=== PATIENT | male | born 1955 | race African-American/Black ===

== ENCOUNTER 2024-06-22 15:20 | Inpatient (IN) | payer OTHER ==
[2024-06-22] MEDS: NALOXONE HCL 0.4 MG/ML VIAL IM ONE (16:00)
[2024-06-22 16:02] LABS: HEMATOCRIT 29.7 % (40.1-51.0); HEMOGLOBIN 10.3 g/dL (13.7-17.5); MCHC 34.7 g/dl (32.3-36.5); MEAN CELL VOLUME 84.9 fl (79.0-92.2); PLATELET COUNT 97 x10^3/uL (163-337); RDW 12.8 % (12.2-16.4)
[2024-06-22] MEDS: PIPERACILLIN/TAZOB 4.5 GM 4.5 GM in DEXTROSE 5%-WATER 100 ML IVPB ONE (16:05)
[2024-06-22 16:09] LABS: INR 1.37 (0.83-1.09); PROTHROMBIN TIME (PATIENT) 14.9 SEC (9.7-13.0)
[2024-06-22] MEDS ORDERED: PIPERACILLIN/TAZOB 4.5 GM 4.5 GM/100 ML BAG IVPB ONE (16:09)
[2024-06-22 16:12] LABS: ACTIVATED PTT 32.4 SECONDS (25.2-36.5)
[2024-06-22 16:14] LABS: VENOUS BASE EXCESS -10.2 mmol/L (-2-2); VENOUS O2 SATURATION 78.9 % (70-80); VENOUS PCO2 27.8 mmHg (38-52); VENOUS PH 7.337 (7.310-7.410)
[2024-06-22 16:33] LABS: CHLORIDE 102 mmol/L (98-107); POTASSIUM 5.9 mmol/L (3.5-5.1); SODIUM 141 mmol/L (136-145)
[2024-06-22 16:35] LABS: CALCIUM 9.5 mg/dL (8.5-10.1)
[2024-06-22 16:36] LABS: ANION GAP 22 mmol/L (4-13); CO2 16 mmol/L (21-32); GLUCOSE,RANDOM 116 mg/dL (74-106)
[2024-06-22 16:39] LABS: SGPT/ALT 814 U/L (13-61)
[2024-06-22 16:40] LABS: BILIRUBIN,TOTAL 2.2 mg/dL (0.2-1)
[2024-06-22 16:42] LABS: ALK PHOS 140 U/L (45-117); BLOOD UREA NITROGEN 200.8 mg/dL (7-18); CREATININE 11.6 mg/dL (0.55-1.3); LACTIC ACID 3.9 mmol/L (0.4-2.0)
[2024-06-22] MEDS: SODIUM CHLORIDE 1,000 ML IV STA ×2 (16:47→16:48)
[2024-06-22] MEDS ORDERED: NOREPINEPHRINE 0.9 % NACL 8 MG/250 ML BAG IVPB ONE (17:00)
[2024-06-22] MEDS: NOREPINEPHRINE 0.9 % NACL 8 MG/250 ML BAG IVPB SCH (17:00)
[2024-06-22] MEDS ORDERED: ACETAMINOPHEN INJECTION 100 ML ONE (17:00)
[2024-06-22 17:12] LABS: SGOT/AST 1255 U/L (15-37)
[2024-06-22] MEDS: ACETAMINOPHEN 1000 MG/100 ML BAG IVPB ONE (17:16)
[2024-06-22] MEDS ORDERED: SODIUM CHLORIDE 250 ML IV PRN (17:59)
[2024-06-22] MEDS: MIDAZOLAM HCL 2 MG/2 ML SINGLE DOSE VIAL IVPUSH ONE ×2 (18:05→18:57)
[2024-06-22] MEDS ORDERED: MIDAZOLAM HCL 2 MG/2 ML SINGLE DOSE VIAL ONE ×2 (18:14→18:44)
[2024-06-22 23:12] LABS: HEPATITIS B SURF AG NON-MATERN NON-REACTIVE (NONREACTIVE)
[2024-06-22] MEDS: PHENTOLAMINE MESYLATE 5 MG/2 ML VIAL IVPUSH ONE (23:15)
[2024-06-22] MEDS: MUPIROCIN 2% TOPICAL OINTMENT FOR DECOLONIZATION NS SCH (23:16)
[2024-06-22] MEDS: CHLORHEXIDINE GLUCONATE 4% CLEANSER FOR DECOLONIZATION TP SCH (23:16)
[2024-06-22] MEDS: HEPARIN NA (PORCINE) 5,000 UNITS/ML 1ML VIAL SQ SCH (23:40)
[2024-06-22 23:41] LABS: HCV DIAGNOSTIC IN-HOUSE W/RFLX NON-REACTIVE (NONREACTIVE)
[2024-06-22 23:41] LABS: HEMATOCRIT 23.9 % (40.1-51.0); HEMOGLOBIN 8.8 g/dL (13.7-17.5); MCHC 36.8 g/dl (32.3-36.5); MEAN CELL VOLUME 81.8 fl (79.0-92.2); PLATELET COUNT 67 x10^3/uL (163-337); RDW 12.4 % (12.2-16.4)
[2024-06-22 23:44] LABS: EPI CELLS >36 /uL (0-25.1); HYALINE CASTS 18 /uL (0-3.1); PH,URINE 5.5 (5.0-8.0); URINE APPEARANCE TURBID; URINE BACTERIA >9,000 /uL (0-1359); URINE BILIRUBIN NEGATIVE (NEGATIVE); URINE COLOR YELLOW; URINE GLUCOSE (UA) NEGATIVE (NEGATIVE); URINE KETONE NEGATIVE (NEGATIVE); URINE LEUK ESTERASE 3+ (NEGATIVE); URINE NITRITE NEGATIVE (NEGATIVE); URINE PROTEIN 3+ (NEGATIVE); URINE WBC 19720 /uL (0-25.8)
[2024-06-22] MEDS: VANCOMYCIN/WATER FOR INJ (PEG) 1,000 MG/200 ML BAG IVPB ONE (23:45)
[2024-06-22 23:59] LABS: CHLORIDE 110 mmol/L (98-107); POTASSIUM 3.9 mmol/L (3.5-5.1); SODIUM 146 mmol/L (136-145)
[2024-06-23 00:01] LABS: ALBUMIN 1.8 g/dl (3.4-5.0); ANION GAP 15 mmol/L (4-13); CO2 20 mmol/L (21-32); MAGNESIUM 2.2 mg/dL (1.8-2.4)
[2024-06-23 00:02] LABS: GLUCOSE,RANDOM 125 mg/dL (74-106)
[2024-06-23 00:04] LABS: CREATININE 6.5 mg/dL (0.55-1.3); PHOSPHOROUS 2.6 mg/dL (2.5-4.9); SGPT/ALT 807 U/L (13-61)
[2024-06-23 00:06] LABS: BILIRUBIN,TOTAL 2.9 mg/dL (0.2-1); TOT PROT 5.3 g/dl (6.4-8.2)
[2024-06-23 00:25] LABS: URINE RBC 568.6 /uL (0-23.9); YEAST NOT SEEN (NEGATIVE)
[2024-06-23 00:50] LABS: ARTERIAL BLD GAS O2 SATURATION 61.5 % (95-98); ARTERIAL BLOOD GAS BASE EXCESS -6.1 mmol/L (-2-2); ARTERIAL BLOOD GAS pH 7.373 (7.350-7.450)
[2024-06-23 00:52] LABS: ALLENS TEST POSITIVE
[2024-06-23 01:00] LABS: ARTERIAL BLOOD GAS PO2 32.4 mmHg (80-100)
[2024-06-23 01:07] LABS: ALK PHOS 176 U/L (45-117); BLOOD UREA NITROGEN 141.1 mg/dL (7-18); CALCIUM 7.9 mg/dL (8.5-10.1); LACTIC ACID 5.1 mmol/L (0.4-2.0); SGOT/AST 1293 U/L (15-37)
[2024-06-23] MEDS: LACTATED RINGERS SOLUTION 1000 ML INFUS.BAG IV ONE (02:07)
[2024-06-23] MEDS: SODIUM CHLORIDE 1,000 ML IV SCH (02:15)
[2024-06-23] MEDS: SODIUM CHLORIDE 1,000 ML IV STA (02:15)
[2024-06-23] MEDS ORDERED: PIPERACILLIN/TAZOB 2.25 GM 2.25 GM in DEXTROSE 5%-WATER - 50 ML IVPB SCH (03:00)
[2024-06-23] MEDS: LACTATED RINGERS SOLUTION 1,000 ML/1,000 ML INFUS.BAG IV SCH (03:04)
[2024-06-23] MEDS: PIPERACILLIN/TAZOB 2.25 GM 2.25 GM in DEXTROSE 5%-WATER - 50 ML IVPB SCH (03:04)
[2024-06-23 06:58] LABS: HEMATOCRIT 20.5 % (40.1-51.0); HEMOGLOBIN 7.1 g/dL (13.7-17.5); MCHC 34.6 g/dl (32.3-36.5)
[2024-06-23 07:00] LABS: MEAN CELL VOLUME 83.7 fl (79.0-92.2); MEAN PLT VOLUME 13.2 fl (9.4-12.4); PLATELET COUNT 66 x10^3/uL (163-337); RDW 12.5 % (12.2-16.4)
[2024-06-23 07:08] LABS: ACTIVATED PTT 29.1 SECONDS (25.2-36.5)
[2024-06-23 07:17] LABS: CHLORIDE 116 mmol/L (98-107); POTASSIUM 4.8 mmol/L (3.5-5.1); SODIUM 146 mmol/L (136-145)
[2024-06-23 07:20] LABS: ALBUMIN 1.6 g/dl (3.4-5.0); ANION GAP 11 mmol/L (4-13); CALCIUM 7.6 mg/dL (8.5-10.1); CO2 19 mmol/L (21-32); GLUCOSE,RANDOM 112 mg/dL (74-106); MAGNESIUM 1.9 mg/dL (1.8-2.4)
[2024-06-23 07:23] LABS: PHOSPHOROUS 4.6 mg/dL (2.5-4.9); SGPT/ALT 702 U/L (13-61)
[2024-06-23 07:25] LABS: TOT PROT 4.5 g/dl (6.4-8.2)
[2024-06-23 07:26] LABS: ALK PHOS 151 U/L (45-117); BLOOD UREA NITROGEN 159.9 mg/dL (7-18); CREATININE 7.4 mg/dL (0.55-1.3)
[2024-06-23 07:34] LABS: LACTIC ACID 2.4 mmol/L (0.4-2.0)
[2024-06-23 07:37] LABS: SGOT/AST 1154 U/L (15-37)
[2024-06-23 07:53] LABS: INR 1.51 (0.83-1.09); PROTHROMBIN TIME (PATIENT) 16.5 SEC (9.7-13.0)
[2024-06-23] MEDS ORDERED: DEXTROSE 5%-0.45% SALINE 1,000 ML IV SCH (09:45)
[2024-06-23] MEDS: PANTOPRAZOLE SODIUM 40 MG VIAL IVPUSH SCH (10:05)
[2024-06-23] MEDS: DEXTROSE 5%-0.45% SALINE 1,000 ML IV SCH (10:06)
[2024-06-23] MEDS ORDERED: SODIUM CHLORIDE 250 ML IV PRN (12:58)
[2024-06-23 20:13] LABS: HEMOGLOBIN 6.6 g/dL (13.7-17.5); MEAN CELL VOLUME 81.7 fl (79.0-92.2)
[2024-06-23 20:14] LABS: HEMATOCRIT 18.3 % (40.1-51.0); MCHC 36.1 g/dl (32.3-36.5); PLATELET COUNT 53 x10^3/uL (163-337); RDW 13.1 % (12.2-16.4)
[2024-06-23 20:43] LABS: POTASSIUM 4.4 mmol/L (3.5-5.1)
[2024-06-23 20:44] LABS: CALCIUM 7.7 mg/dL (8.5-10.1)
[2024-06-23 20:46] LABS: ALBUMIN 1.4 g/dl (3.4-5.0); MAGNESIUM 1.8 mg/dL (1.8-2.4)
[2024-06-23 20:48] LABS: BLOOD UREA NITROGEN 93.4 mg/dL (7-18); CREATININE 4.4 mg/dL (0.55-1.3); PHOSPHOROUS 3.9 mg/dL (2.5-4.9)
[2024-06-23 20:50] LABS: BILIRUBIN,TOTAL 4.2 mg/dL (0.2-1); TOT PROT 4.4 g/dl (6.4-8.2)
[2024-06-23] MEDS: PIPERACILLIN/TAZOB 2.25 GM 2.25 GM/50 ML BAG IVPB SCH (21:44)
[2024-06-24] MEDS: ACETAMINOPHEN 325 MG TABLET (FP) PO ONE (05:53)
[2024-06-24 07:39] LABS: HEMATOCRIT 23.9 % (40.1-51.0); HEMOGLOBIN 8.3 g/dL (13.7-17.5); MCHC 34.7 g/dl (32.3-36.5); MEAN CELL VOLUME 82.7 fl (79.0-92.2); MEAN PLT VOLUME 13.7 fl (9.4-12.4); PLATELET COUNT 60 x10^3/uL (163-337); RDW 13.3 % (12.2-16.4)
[2024-06-24 07:55] LABS: POTASSIUM 4.1 mmol/L (3.5-5.1)
[2024-06-24 08:02] LABS: ALBUMIN 1.7 g/dl (3.4-5.0); MAGNESIUM 2.2 mg/dL (1.8-2.4)
[2024-06-24 08:04] LABS: BLOOD UREA NITROGEN 101.3 mg/dL (7-18); CREATININE 4.7 mg/dL (0.55-1.3)
[2024-06-24 08:06] LABS: PHOSPHOROUS 5.8 mg/dL (2.5-4.9); TOT PROT 5.1 g/dl (6.4-8.2)
[2024-06-24 08:18] LABS: BILIRUBIN,TOTAL 7.1 mg/dL (0.2-1)
[2024-06-24] MEDS: ACETAMINOPHEN 1000 MG/100 ML BAG IVPB ONE (09:18)
[2024-06-24 09:34] LABS: BILIRUBIN,DIRECT 5.2 mg/dL (0.0-0.2)
[2024-06-24] MEDS ORDERED: RAPID SEQUENCE INTUBATION KIT NR ONE (09:53)
[2024-06-24] MEDS: MEROPENEM-0.9% SODIUM CHLORIDE 500 MG/50 ML BAG IVPB SCH (11:12)
[2024-06-24] MEDS ORDERED: EPOETIN ALFA-EPBX 4,000 UNIT/ML VIAL SQ ONE (15:30)
[2024-06-24] MEDS: HEPARIN NA (PORCINE) 5,000 UNITS/ML 1ML VIAL IVPUSH ONE (15:30)
[2024-06-24] MEDS ORDERED: SODIUM CHLORIDE 250 ML IV ONE (15:45)
[2024-06-24] MEDS: PIPERACILLIN/TAZOB 2.25 GM 2.25 GM in DEXTROSE 5%-WATER - 50 ML IVPB SCH (18:11)
[2024-06-24] MEDS ORDERED: MEROPENEM-0.9% SODIUM CHLORIDE 500 MG/50 ML BAG IVPB SCH (22:00)
[2024-06-25] MEDS: PIPERACILLIN/TAZOB 2.25 GM 2.25 GM/50 ML BAG IVPB SCH ×2 (02:00→17:37)
[2024-06-25 09:40] LABS: HEMATOCRIT 24.8 % (40.1-51.0); HEMOGLOBIN 8.6 g/dL (13.7-17.5); MCHC 34.7 g/dl (32.3-36.5); MEAN CELL VOLUME 85.5 fl (79.0-92.2); PLATELET COUNT 73 x10^3/uL (163-337); RDW 15.3 % (12.2-16.4)
[2024-06-25 09:58] LABS: CALCIUM 8.1 mg/dL (8.5-10.1); POTASSIUM 4.2 mmol/L (3.5-5.1)
[2024-06-25 09:59] LABS: MAGNESIUM 2.2 mg/dL (1.8-2.4)
[2024-06-25 10:02] LABS: CREATININE 2.9 mg/dL (0.55-1.3); PHOSPHOROUS 4.3 mg/dL (2.5-4.9)
[2024-06-25 10:04] LABS: BLOOD UREA NITROGEN 61.9 mg/dL (7-18)
[2024-06-25] MEDS: ACETAMINOPHEN 325 MG TABLET (FP) PO PRN (12:33)
[2024-06-25] MEDS: EPOETIN ALFA-EPBX 4,000 UNIT/ML VIAL SQ ONE (15:26)
[2024-06-25] MEDS: DEXTROSE 5%-0.45% SALINE 1,000 ML IV SCH (16:00)
[2024-06-25] MEDS: HEPARIN NA (PORCINE) 5,000 UNITS/ML 1ML VIAL SQ SCH (21:28)
[2024-06-25] MEDS ORDERED: CHLORHEXIDINE GLUCONATE 4% CLEANSER FOR DECOLONIZATION TP SCH (22:00)
[2024-06-25] MEDS ORDERED: MUPIROCIN 2% TOPICAL OINTMENT FOR DECOLONIZATION NS SCH (22:00)
[2024-06-26 07:59] LABS: HEMATOCRIT 20.3 % (40.1-51.0); HEMOGLOBIN 6.7 g/dL (13.7-17.5); MEAN CELL VOLUME 87.5 fl (79.0-92.2); MEAN PLT VOLUME 12.9 fl (9.4-12.4); PLATELET COUNT 116 x10^3/uL (163-337); RDW 15.8 % (12.2-16.4)
[2024-06-26 08:26] LABS: BLOOD UREA NITROGEN 61.2 mg/dL (7-18); CALCIUM 7.9 mg/dL (8.5-10.1); MAGNESIUM 2.1 mg/dL (1.8-2.4)
[2024-06-26] MEDS: PANTOPRAZOLE SODIUM 40 MG VIAL IVPUSH SCH (10:16)
[2024-06-27 07:54] LABS: HEMATOCRIT 20.6 % (40.1-51.0); HEMOGLOBIN 6.8 g/dL (13.7-17.5); MEAN CELL VOLUME 86.2 fl (79.0-92.2); MEAN PLT VOLUME 12.1 fl (9.4-12.4); PLATELET COUNT 193 x10^3/uL (163-337); RDW 15.3 % (12.2-16.4)
[2024-06-27 08:17] LABS: CALCIUM 8.2 mg/dL (8.5-10.1)
[2024-06-27 08:18] LABS: BLOOD UREA NITROGEN 50.6 mg/dL (7-18); MAGNESIUM 1.7 mg/dL (1.8-2.4)
[2024-06-27 08:21] LABS: CREATININE 2.5 mg/dL (0.55-1.3)
[2024-06-27] MEDS: ACETAMINOPHEN 1000 MG/100 ML BAG IVPB PRN (11:38)
[2024-06-27] MEDS: MAGNESIUM 1GM/D5W - 1 GM/100 ML IVPB IVPB ONE (11:39)
[2024-06-27] MEDS: POLYETHYLENE GLYCOL (HEALTHYLAX) 3350 17 GM PACKET PO SCH (11:39)
[2024-06-27] MEDS: PANTOPRAZOLE SODIUM 40 MG VIAL IVPUSH SCH (11:39)
[2024-06-27 13:08] LABS: BILIRUBIN,TOTAL 2.8 mg/dL (0.2-1)
[2024-06-27] MEDS: IRON SUCROSE INJECTION 200 MG in SODIUM CHLORIDE 100 ML IVPB ONE (13:29)
[2024-06-27] MEDS: DEXTROSE 5%-WATER - 1,000 ML IV SCH (16:40)
[2024-06-28 06:46] LABS: HEMATOCRIT 28.8 % (40.1-51.0); HEMOGLOBIN 9.7 g/dL (13.7-17.5); MCHC 33.7 g/dl (32.3-36.5); MEAN CELL VOLUME 86.7 fl (79.0-92.2); PLATELET COUNT 291 x10^3/uL (163-337); RDW 15.3 % (12.2-16.4)
[2024-06-28 06:51] LABS: INR 1.31 (0.83-1.09); PROTHROMBIN TIME (PATIENT) 14.4 SEC (9.7-13.0)
[2024-06-28 09:06] LABS: POTASSIUM 4.3 mmol/L (3.5-5.1)
[2024-06-28 09:16] LABS: ALBUMIN 1.6 g/dl (3.4-5.0); BILIRUBIN,TOTAL 2.5 mg/dL (0.2-1); BLOOD UREA NITROGEN 59.8 mg/dL (7-18)
[2024-06-28 09:17] LABS: TOT PROT 5.3 g/dl (6.4-8.2)
[2024-06-28 09:18] LABS: CALCIUM 8.3 mg/dL (8.5-10.1)
[2024-06-28 09:19] LABS: CREATININE 3.2 mg/dL (0.55-1.3); MAGNESIUM 2.3 mg/dL (1.8-2.4); PHOSPHOROUS 4.9 mg/dL (2.5-4.9)
[2024-06-28] MEDS: FINASTERIDE 5 MG TABLET (FP) PO SCH (13:13)
[2024-06-28] MEDS ORDERED: BISACODYL 5 MG TABLET.DR (FP) PO PRN (13:31)
[2024-06-28 16:56] LABS: HEMATOCRIT 28.1 % (40.1-51.0); HEMOGLOBIN 9.3 g/dL (13.7-17.5); MCHC 33.1 g/dl (32.3-36.5); MEAN CELL VOLUME 86.7 fl (79.0-92.2); MEAN PLT VOLUME 12.2 fl (9.4-12.4); PLATELET COUNT 339 x10^3/uL (163-337); RDW 15.5 % (12.2-16.4)
[2024-06-29 08:14] LABS: HEMATOCRIT 30.1 % (40.1-51.0); HEMOGLOBIN 9.9 g/dL (13.7-17.5); MCHC 32.9 g/dl (32.3-36.5); MEAN PLT VOLUME 11.5 fl (9.4-12.4); PLATELET COUNT 472 x10^3/uL (163-337); RDW 15.6 % (12.2-16.4)
[2024-06-29 08:40] LABS: ALBUMIN 1.7 g/dl (3.4-5.0); BLOOD UREA NITROGEN 45.6 mg/dL (7-18); CALCIUM 8.5 mg/dL (8.5-10.1)
[2024-06-29 08:42] LABS: MAGNESIUM 1.7 mg/dL (1.8-2.4)
[2024-06-29 08:43] LABS: CREATININE 2.4 mg/dL (0.55-1.3); PHOSPHOROUS 3.8 mg/dL (2.5-4.9)
[2024-06-29 08:45] LABS: BILIRUBIN,TOTAL 2.6 mg/dL (0.2-1)
[2024-06-29] MEDS: MAGNESIUM 2GM/50ML STERILE WATER IVPB IVPB ONE (11:17)
[2024-06-29] MEDS: SODIUM CHLORIDE 0.45% 1,000 ML IV SCH (11:18)
[2024-06-29] MEDS: TAMSULOSIN HCL 0.4 MG CAP PO SCH (11:18)
[2024-06-29] MEDS ORDERED: DEXTROSE 5%-WATER - 1,000 ML IV SCH (15:15)
[2024-06-29 16:46] LABS: POTASSIUM 4.1 mmol/L (3.5-5.1)
[2024-06-29] MEDS: HEPARIN NA (PORCINE) 5,000 UNITS/ML 1ML VIAL SQ SCH (22:04)
[2024-06-29] MEDS: GLYCERIN 1 RECTAL SUPPOSITORY, ADULT RC ONE (22:04)
[2024-06-29] MEDS: DEXTROSE 5%-WATER - 1,000 ML IV SCH (22:07)
[2024-06-30 07:12] LABS: HEMATOCRIT 27.7 % (40.1-51.0); MCHC 32.5 g/dl (32.3-36.5); MEAN CELL VOLUME 90.2 fl (79.0-92.2); MEAN PLT VOLUME 11.6 fl (9.4-12.4); PLATELET COUNT 551 x10^3/uL (163-337); RDW 15.8 % (12.2-16.4)
[2024-06-30 07:38] LABS: POTASSIUM 4.2 mmol/L (3.5-5.1)
[2024-06-30 07:46] LABS: ALBUMIN 1.6 g/dl (3.4-5.0)
[2024-06-30 07:47] LABS: BLOOD UREA NITROGEN 45.2 mg/dL (7-18)
[2024-06-30 07:48] LABS: CALCIUM 8.6 mg/dL (8.5-10.1)
[2024-06-30 07:49] LABS: MAGNESIUM 2.1 mg/dL (1.8-2.4)
[2024-06-30 07:50] LABS: CREATININE 2.2 mg/dL (0.55-1.3)
[2024-06-30 07:51] LABS: BILIRUBIN,TOTAL 1.9 mg/dL (0.2-1); TOT PROT 5.6 g/dl (6.4-8.2)
[2024-06-30] MEDS: IRON SUCROSE INJECTION 200 MG in SODIUM CHLORIDE 100 ML IVPB ONE (15:48)
[2024-07-01 05:30] VITALS: PULSE 95
[2024-07-01 06:48] LABS: HEMATOCRIT 26.6 % (40.1-51.0); HEMOGLOBIN 8.8 g/dL (13.7-17.5); MCHC 33.1 g/dl (32.3-36.5); MEAN CELL VOLUME 88.7 fl (79.0-92.2); MEAN PLT VOLUME 10.8 fl (9.4-12.4); PLATELET COUNT 683 x10^3/uL (163-337); RDW 15.6 % (12.2-16.4)
[2024-07-01 07:01] LABS: CALCIUM 8.4 mg/dL (8.5-10.1)
[2024-07-01 07:02] LABS: ALBUMIN 1.5 g/dl (3.4-5.0); BLOOD UREA NITROGEN 36.4 mg/dL (7-18); MAGNESIUM 1.9 mg/dL (1.8-2.4)
[2024-07-01 07:05] LABS: PHOSPHOROUS 3.6 mg/dL (2.5-4.9)
[2024-07-01 07:07] LABS: BILIRUBIN,TOTAL 1.7 mg/dL (0.2-1); TOT PROT 5.4 g/dl (6.4-8.2)
[2024-07-01 07:11] LABS: CREATININE 2.3 mg/dL (0.55-1.3)
[2024-07-01 10:04] VITALS: BP 152/88; RESP 18; TEMP 98.4
[2024-07-01 11:23] VITALS: BMI 23.1
== END 2024-07-01 11:57 | DRG 871 ==
LOC: JER 15:20 → JERBED 16:39 → JICU 20:28 → J4W 06-25 14:54
PROVIDERS: ADMIT Internal Medicine Pulmonary Disease; ATTEND Internal Medicine
PROC: 5A1D70Z Performance of Urinary Filtration, Intermittent, Less than 6 Hours Per Day (ICD-10-PCS; 2024-06-22)
PROC: 30233N1 Transfusion of Nonautologous Red Blood Cells into Peripheral Vein, Percutaneous Approach (ICD-10-PCS; 2024-06-26)
PROC: 05HB33Z Insertion of Infusion Device into Right Basilic Vein, Percutaneous Approach (ICD-10-PCS; principal; 2024-06-30)
PROC: B54MZZA Ultrasonography of Right Upper Extremity Veins, Guidance (ICD-10-PCS; 2024-06-30)
DX: A41.50 Gram-negative sepsis, unspecified (principal); G92.8 Other toxic encephalopathy; R65.21 Severe sepsis with septic shock; K72.00 Acute and subacute hepatic failure without coma; N39.0 Urinary tract infection, site not specified; N17.9 Acute kidney failure, unspecified; E87.20 Acidosis, unspecified; N13.30 Unspecified hydronephrosis; E87.0 Hyperosmolality and hypernatremia; M62.82 Rhabdomyolysis; E44.0 Moderate protein-calorie malnutrition; E87.5 Hyperkalemia; R74.01 Elevation of levels of liver transaminase levels; D69.6 Thrombocytopenia, unspecified; R79.89 Other specified abnormal findings of blood chemistry; K59.00 Constipation, unspecified; D63.8 Anemia in other chronic diseases classified elsewhere; E83.42 Hypomagnesemia; Z68.24 Body mass index [BMI] 24.0-24.9, adult
CPT/HCPCS: 0241U-QW; 36415; 36430; 36600; 70450-TC; 71045-TC-FY; 72125-TC; 74018-TC-FY; 74176-TC; 74181-TC; 76705-TC; 76870-TC; 80048; 80053; 80307; 81003; 82140; 82247; 82248; 82272; 82550; 82553; 82728; 82803; 82962; 83540; 83550; 83605; 83735; 84075; 84100; 84436; 84443; 84450; 84460; 84479; 84484; 85025; 85027; 85610; 85730; 86704; 86708; 86803; 86900; 86922; 87040; 87086; 87186; 87340; 87517; 93005; 93010; 93306-TC; 97116-GP; 97161-GP; 99285-25; J0131; J1644; J1756; P9038; P9058

== ENCOUNTER 2024-07-20 19:15 | Inpatient (IN) | payer OTHER ==
[2024-07-20 20:32] LABS: HEMATOCRIT 28.5 % (40.1-51.0); MEAN CELL VOLUME 91.9 fl (79.0-92.2); RDW 15.3 % (12.2-16.4)
[2024-07-20 20:34] LABS: HEMOGLOBIN 8.9 g/dL (13.7-17.5); MCHC 31.2 g/dl (32.3-36.5); MEAN PLT VOLUME 10.4 fl (9.4-12.4); PLATELET COUNT 563 x10^3/uL (163-337)
[2024-07-20 20:39] LABS: VENOUS BASE EXCESS 1.6 mmol/L (-2-2); VENOUS O2 SATURATION 75.1 % (70-80); VENOUS PCO2 39.5 mmHg (38-52); VENOUS PH 7.434 (7.310-7.410)
[2024-07-20 20:40] LABS: INR 1.17 (0.83-1.09); PROTHROMBIN TIME (PATIENT) 12.8 SEC (9.7-13.0)
[2024-07-20 20:43] LABS: ACTIVATED PTT 30.7 SECONDS (25.2-36.5)
[2024-07-20 20:55] LABS: CHLORIDE 104 mmol/L (98-107); SODIUM 134 mmol/L (136-145)
[2024-07-20 20:56] LABS: CALCIUM 9.6 mg/dL (8.5-10.1)
[2024-07-20 20:57] LABS: ALBUMIN 2.2 g/dl (3.4-5.0); BLOOD UREA NITROGEN 21.3 mg/dL (7-18); CO2 25 mmol/L (21-32); GLUCOSE,RANDOM 86 mg/dL (74-106)
[2024-07-20 21:00] LABS: CREATININE 1.7 mg/dL (0.55-1.3); SGOT/AST 60 U/L (15-37); SGPT/ALT 40 U/L (13-61)
[2024-07-20 21:02] LABS: BILIRUBIN,TOTAL 0.9 mg/dL (0.2-1); TOT PROT 8.1 g/dl (6.4-8.2)
[2024-07-20 21:03] LABS: ALK PHOS 159 U/L (45-117)
[2024-07-20] MEDS ORDERED: MEROPENEM 1 GM VIAL (RESTRICTED TO ID) IVPB ONE (21:11)
[2024-07-20] MEDS: MEROPENEM 1 GM in DEXTROSE 5%-WATER 100 ML IVPB ONE (21:18)
[2024-07-20 21:21] LABS: URINE APPEARANCE CLEAR; URINE BILIRUBIN NEGATIVE (NEGATIVE); URINE COLOR YELLOW; URINE GLUCOSE (UA) NEGATIVE (NEGATIVE); URINE KETONE NEGATIVE (NEGATIVE); URINE LEUK ESTERASE 2+ (NEGATIVE); URINE NITRITE NEGATIVE (NEGATIVE); URINE PROTEIN 2+ (NEGATIVE); URINE UROBILINOGEN 0.2 mg/dL (0.2-1.0)
[2024-07-20 21:40] LABS: EPI CELLS 24.8 /uL (0-25.1); HYALINE CASTS 2.13 /uL (0-3.1); URINE RBC 43.2 /uL (0-23.9); URINE WBC 289.4 /uL (0-25.8)
[2024-07-20 21:41] LABS: URINE BACTERIA 32.4 /uL (0-1359)
[2024-07-20 21:41] LABS: ANION GAP 5 mmol/L (4-13); POTASSIUM 7.2 mmol/L (3.5-5.1)
[2024-07-20 23:18] LABS: POTASSIUM 5.1 mmol/L (3.5-5.1)
[2024-07-20 23:20] LABS: BLOOD UREA NITROGEN 21.3 mg/dL (7-18)
[2024-07-20 23:24] LABS: CREATININE 1.5 mg/dL (0.55-1.3)
[2024-07-20] MEDS ORDERED: VANCOMYCIN 1 GM PREMIX (F) 1 GM/200 ML BAG ONE (23:59)
[2024-07-21] MEDS: LACTATED RINGERS SOLUTION 1,000 ML/1,000 ML INFUS.BAG IV SCH (00:15)
[2024-07-21] MEDS: VANCOMYCIN 1 GM PREMIX (F) 1 GM/200 ML BAG IVPB SCH (00:15)
[2024-07-21] MEDS ORDERED: ACETAMINOPHEN 325 MG TABLET (FP) PO PRN (00:46)
[2024-07-21 08:46] LABS: MEAN PLT VOLUME 9.1 fl (9.4-12.4)
[2024-07-21 08:48] LABS: HEMATOCRIT 26.2 % (40.1-51.0); HEMOGLOBIN 8.1 g/dL (13.7-17.5); MCHC 30.9 g/dl (32.3-36.5); PLATELET COUNT 675 x10^3/uL (163-337); RDW 14.6 % (12.2-16.4)
[2024-07-21 08:49] LABS: INR 1.24 (0.83-1.09); PROTHROMBIN TIME (PATIENT) 13.6 SEC (9.7-13.0)
[2024-07-21 08:52] LABS: ACTIVATED PTT 29.4 SECONDS (25.2-36.5)
[2024-07-21 08:57] LABS: POTASSIUM 4.3 mmol/L (3.5-5.1)
[2024-07-21 09:03] LABS: BLOOD UREA NITROGEN 19.2 mg/dL (7-18); CALCIUM 9.4 mg/dL (8.5-10.1)
[2024-07-21 09:06] LABS: CREATININE 1.4 mg/dL (0.55-1.3); MAGNESIUM 1.9 mg/dL (1.8-2.4)
[2024-07-21 09:07] LABS: BILIRUBIN,TOTAL 0.7 mg/dL (0.2-1); PHOSPHOROUS 3.8 mg/dL (2.5-4.9); TOT PROT 6.6 g/dl (6.4-8.2)
[2024-07-21] MEDS: MEROPENEM 1 GM in DEXTROSE 5%-WATER 100 ML IVPB SCH ×2 (09:19→17:53)
[2024-07-21] MEDS: TAMSULOSIN HCL 0.4 MG CAP PO SCH (09:19)
[2024-07-21] MEDS: FINASTERIDE 5 MG TABLET (FP) PO SCH (09:19)
[2024-07-21] MEDS: CYANOCOBALAMIN 1,000 MCG TABLET (FP) PO SCH (09:19)
[2024-07-21] MEDS ORDERED: CARVEDILOL 3.125 MG TABLET (FP) PO SCH (10:00)
[2024-07-21] MEDS: HEPARIN NA (PORCINE) 5,000 UNITS/ML 1ML VIAL SQ SCH (16:18)
[2024-07-22 08:04] LABS: HEMOGLOBIN 8.6 g/dL (13.7-17.5)
[2024-07-22 08:05] LABS: ABSOLUTE IMMATURE GRANULOCYTES 0.06 x10^3/uL (0.0-0.031); BASOPHILS # 0.09 x10^3/uL (0.01-0.08); EOSINOPHIL % 2.8 % (0.8-7.0); EOSINOPHILS # 0.41 x10^3/uL (0.04-0.54); HEMATOCRIT 27.9 % (40.1-51.0); MCHC 30.8 g/dl (32.3-36.5); MEAN CELL VOLUME 90.3 fl (79.0-92.2); MEAN PLT VOLUME 8.7 fl (9.4-12.4); MONOCYTE # 1.22 x10^3/uL (0.30-0.82); MONOCYTE % 8.4 % (5.3-12.2); PLATELET COUNT 639 x10^3/uL (163-337); RDW 14.6 % (12.2-16.4)
[2024-07-22 08:27] LABS: CALCIUM 9.5 mg/dL (8.5-10.1)
[2024-07-22 08:28] LABS: ALBUMIN 2.1 g/dl (3.4-5.0); BLOOD UREA NITROGEN 13.4 mg/dL (7-18)
[2024-07-22 08:31] LABS: CREATININE 1.4 mg/dL (0.55-1.3)
[2024-07-22 08:33] LABS: BILIRUBIN,TOTAL 0.6 mg/dL (0.2-1)
[2024-07-22] MEDS: MEROPENEM 1 GM in DEXTROSE 5%-WATER 100 ML IVPB SCH (15:55)
[2024-07-22] MEDS ORDERED: VANCOMYCIN 1 GM PREMIX (F) 1 GM/200 ML BAG IVPB SCH (23:30)
[2024-07-23 08:29] LABS: HEMATOCRIT 29.5 % (40.1-51.0); HEMOGLOBIN 9.3 g/dL (13.7-17.5); MCHC 31.5 g/dl (32.3-36.5); MEAN CELL VOLUME 90.2 fl (79.0-92.2); MEAN PLT VOLUME 8.8 fl (9.4-12.4); PLATELET COUNT 691 x10^3/uL (163-337); RDW 14.7 % (12.2-16.4)
[2024-07-23 09:01] LABS: POTASSIUM 4.4 mmol/L (3.5-5.1)
[2024-07-23 09:10] LABS: CALCIUM 10.3 mg/dL (8.5-10.1)
[2024-07-23 09:11] LABS: ALBUMIN 2.3 g/dl (3.4-5.0); BLOOD UREA NITROGEN 15.8 mg/dL (7-18)
[2024-07-23 09:14] LABS: CREATININE 1.5 mg/dL (0.55-1.3)
[2024-07-23 09:15] LABS: BILIRUBIN,TOTAL 0.6 mg/dL (0.2-1)
[2024-07-23 09:16] LABS: TOT PROT 7.6 g/dl (6.4-8.2)
[2024-07-23 15:03] VITALS: BMI 20.8
[2024-07-24 08:01] LABS: ABSOLUTE IMMATURE GRANULOCYTES 0.04 x10^3/uL (0.0-0.031); BASOPHILS # 0.09 x10^3/uL (0.01-0.08); EOSINOPHIL % 3.4 % (0.8-7.0); EOSINOPHILS # 0.49 x10^3/uL (0.04-0.54); HEMATOCRIT 29.8 % (40.1-51.0); HEMOGLOBIN 9.6 g/dL (13.7-17.5); MCHC 32.2 g/dl (32.3-36.5); MEAN PLT VOLUME 8.9 fl (9.4-12.4); MONOCYTE # 1.35 x10^3/uL (0.30-0.82); MONOCYTE % 9.5 % (5.3-12.2); PLATELET COUNT 672 x10^3/uL (163-337); RDW 14.5 % (12.2-16.4)
[2024-07-24 08:30] LABS: POTASSIUM 4.5 mmol/L (3.5-5.1)
[2024-07-24 08:46] LABS: CALCIUM 10.1 mg/dL (8.5-10.1)
[2024-07-24 08:47] LABS: ALBUMIN 2.3 g/dl (3.4-5.0); MAGNESIUM 2.1 mg/dL (1.8-2.4)
[2024-07-24 08:48] LABS: BILIRUBIN,TOTAL 0.6 mg/dL (0.2-1); TOT PROT 7.6 g/dl (6.4-8.2)
[2024-07-24 08:49] LABS: CREATININE 1.4 mg/dL (0.55-1.3)
[2024-07-24 08:50] LABS: PHOSPHOROUS 3.6 mg/dL (2.5-4.9)
[2024-07-25 08:53] LABS: HEMATOCRIT 30.3 % (40.1-51.0); HEMOGLOBIN 9.8 g/dL (13.7-17.5); MCHC 32.3 g/dl (32.3-36.5); MEAN CELL VOLUME 90.2 fl (79.0-92.2); PLATELET COUNT 625 x10^3/uL (163-337); RDW 14.7 % (12.2-16.4)
[2024-07-25 09:13] LABS: POTASSIUM 4.5 mmol/L (3.5-5.1)
[2024-07-25 09:21] LABS: CALCIUM 10.4 mg/dL (8.5-10.1)
[2024-07-25 09:22] LABS: ALBUMIN 2.3 g/dl (3.4-5.0); BLOOD UREA NITROGEN 24.2 mg/dL (7-18); MAGNESIUM 2.1 mg/dL (1.8-2.4)
[2024-07-25 09:24] LABS: CREATININE 1.4 mg/dL (0.55-1.3)
[2024-07-25 09:25] LABS: PHOSPHOROUS 3.8 mg/dL (2.5-4.9)
[2024-07-25 09:26] LABS: BILIRUBIN,TOTAL 0.6 mg/dL (0.2-1); TOT PROT 7.4 g/dl (6.4-8.2)
[2024-07-26] MEDS: SODIUM PHOSPHATE/NA BIPHOS 133 ML ENEMA RC ONE (08:47)
[2024-07-26 09:11] LABS: HEMATOCRIT 30.9 % (40.1-51.0); HEMOGLOBIN 9.7 g/dL (13.7-17.5); MCHC 31.4 g/dl (32.3-36.5); MEAN PLT VOLUME 8.9 fl (9.4-12.4); PLATELET COUNT 651 x10^3/uL (163-337); RDW 14.8 % (12.2-16.4)
[2024-07-26 09:42] LABS: POTASSIUM 4.6 mmol/L (3.5-5.1)
[2024-07-26 10:08] LABS: ALBUMIN 2.3 g/dl (3.4-5.0); BLOOD UREA NITROGEN 24.9 mg/dL (7-18)
[2024-07-26 10:09] LABS: CALCIUM 10.6 mg/dL (8.5-10.1)
[2024-07-26 10:11] LABS: CREATININE 1.3 mg/dL (0.55-1.3)
[2024-07-26 10:12] LABS: BILIRUBIN,TOTAL 0.7 mg/dL (0.2-1); TOT PROT 7.4 g/dl (6.4-8.2)
[2024-07-26] MEDS ORDERED: MIDAZOLAM HCL 2 MG/2 ML SINGLE DOSE VIAL ONE (10:57)
[2024-07-26] MEDS ORDERED: PROPOFOL 20 ML ONE ×2 (10:58→11:21)
[2024-07-26] MEDS ORDERED: LACTATED RINGERS SOLUTION 1,000 ML IV SCH (11:00)
[2024-07-26] MEDS ORDERED: ACETAMINOPHEN 325 MG TABLET (FP) PO PRN ×2 (12:32→18:05)
[2024-07-26] MEDS: LACTATED RINGERS SOLUTION 1,000 ML IV SCH (13:03)
[2024-07-26] MEDS: MEROPENEM 1 GM in DEXTROSE 5%-WATER 100 ML IVPB SCH (17:49)
[2024-07-27 08:47] LABS: ABSOLUTE IMMATURE GRANULOCYTES 0.05 x10^3/uL (0.0-0.031); HEMOGLOBIN 9.6 g/dL (13.7-17.5)
[2024-07-27 08:48] LABS: BASOPHILS # 0.06 x10^3/uL (0.01-0.08); EOSINOPHIL % 4.1 % (0.8-7.0); EOSINOPHILS # 0.62 x10^3/uL (0.04-0.54); HEMATOCRIT 30.6 % (40.1-51.0); MCHC 31.4 g/dl (32.3-36.5); MEAN CELL VOLUME 91.9 fl (79.0-92.2); MEAN PLT VOLUME 9.1 fl (9.4-12.4); MONOCYTE % 4.7 % (5.3-12.2); PLATELET COUNT 616 x10^3/uL (163-337); RDW 14.7 % (12.2-16.4)
[2024-07-27 09:04] LABS: POTASSIUM 4.4 mmol/L (3.5-5.1)
[2024-07-27 09:06] LABS: ALBUMIN 2.4 g/dl (3.4-5.0); CALCIUM 10.4 mg/dL (8.5-10.1)
[2024-07-27 09:10] LABS: BILIRUBIN,TOTAL 0.7 mg/dL (0.2-1); CREATININE 1.2 mg/dL (0.55-1.3); TOT PROT 7.4 g/dl (6.4-8.2)
[2024-07-27] MEDS: TAMSULOSIN HCL 0.4 MG CAP PO SCH (09:24)
[2024-07-27] MEDS: ENOXAPARIN NA (PORCINE) 40 MG/0.4 ML DISP.SYRIN SQ SCH (09:24)
[2024-07-27] MEDS: FINASTERIDE 5 MG TABLET (FP) PO SCH (09:24)
[2024-07-27] MEDS: CYANOCOBALAMIN 1,000 MCG TABLET (FP) PO SCH (09:25)
[2024-07-27] MEDS: CHOLECALCIFEROL (VIT D3) 5000 UNITS (125 MCG) CAP PO SCH (09:25)
[2024-07-29 13:47] VITALS: RESP 16
[2024-07-29 15:18] VITALS: BP 138/82; PULSE 105; TEMP 98.4
== END 2024-07-29 17:39 | DRG 853 ==
LOC: JER 19:15 → JERBED 20:06 → J6S 07-21 04:45
PROVIDERS: ADMIT Hospitalist; ATTEND Internal Medicine
PROC: 0VB Male Reproductive System, Excision (ICD-10-PCS; principal; 2024-07-26 11:00)
PROC: 02HV33Z Insertion of Infusion Device into Superior Vena Cava, Percutaneous Approach (ICD-10-PCS; 2024-07-27)
PROC: B548ZZA Ultrasonography of Superior Vena Cava, Guidance (ICD-10-PCS; 2024-07-27)
DX: A41.9 Sepsis, unspecified organism (principal); N15.1 Renal and perinephric abscess; N12 Tubulo-interstitial nephritis, not specified as acute or chronic; E44.0 Moderate protein-calorie malnutrition; N40.0 Benign prostatic hyperplasia without lower urinary tract symptoms; I12.9 Hypertensive chronic kidney disease with stage 1 through stage 4 chronic kidney disease, or unspecified chronic kidney disease; N18.9 Chronic kidney disease, unspecified; J44.9 Chronic obstructive pulmonary disease, unspecified; D64.9 Anemia, unspecified; D75.839 Thrombocytosis, unspecified; Z68.20 Body mass index [BMI] 20.0-20.9, adult; E83.52 Hypercalcemia; E55.9 Vitamin D deficiency, unspecified; C61 Malignant neoplasm of prostate
CPT/HCPCS: 0241U-QW; 36415; 36569; 71045-TC-FY; 71250-TC; 74181-TC; 80048; 80053; 81003; 82306; 82397; 82652; 82803; 82962; 83605; 83735; 83970; 84100; 84153; 84484; 85025; 85027; 85610; 85730; 86850; 86900; 86901; 87040; 87086; 88305-TC; 88342-TC; 93005; 93010; 94760; 97116-GP; 97162-GP; 99285-25; G0480